=== PATIENT | female | born 1955 | race Caucasian/White ===

== ENCOUNTER 2020-01-03 07:09 | Outpatient (CLI) | payer MEDICARE, SELFPAY ==
[2020-01-03 08:15] LABS: Basophils Absolute Auto 0.1 K/mm3 (0.0-0.1); Basophils Percent Auto 0.8 % (0.2-1.2); Eosinophils Absolute Auto 0.7 K/mm3 (0-0.3); Eosinophils Percent Auto 11.2 % (0-4.4); Hematocrit 38.5 % (37.0-47.0); Hemoglobin 12.5 g/dL (12.0-15.0); Immature Granulocyte Absolute 0.02 K/mm3 (0.00-0.031); Immature Granulocyte Percent A 0.3 % (0-0.5); Lymphocytes Absolute Auto 2.27 K/mm3 (0.9-3.2); Lymphocytes Percent Auto 38.5 % (18.3-44.2); Mean Corpuscular HGB Conc 32.5 g/dl (32-36); Mean Corpuscular Hemoglobin 32.3 pg (26-34); Mean Corpuscular Volume 99.5 fl (80-100); Mean Platelet Volume 9.9 fl (7.4-10.4); Monocytes Absolute Auto 0.5 K/mm3 (0.1-0.6); Monocytes Percent Auto 7.6 % (2.6-8.5); Neutrophils Absolute Auto 2.5 K/mm3 (1.3-6.7); Neutrophils Percent Auto 41.6 % (45.5-73.1); Platelet Count Result 210 k/mm3 (150-375); Red Blood Count 3.87 M/mm3 (4.2-5.4); Red Cell Distribution Width 12.6 % (11.5-14.5); White Blood Count 5.9 K/mm3 (4.5-10.0)
[2020-01-03 08:30] LABS: Alanine Aminotransferase 21 U/L (4-35); Albumin Level 4.3 g/dL (3.5-5.1); Alkaline Phosphatase 59 U/L (38-126); Aspartate Amino Transferase 29 U/L (14-36); Bilirubin,Total 0.7 mg/dL (0.2-1.3); Blood Urea Nitrogen 16 mg/dL (7-17); Carbon Dioxide 31 mmol/L (22-30); Chloride 101 mmol/L (98-107); Cholesterol 222 mg/dL (0-200); Estimated Glomerular Filt Rate > 60; Glucose 80 mg/dL (65-105); HDL Direct 58 mg/dL; Potassium 4.1 mmol/L (3.4-5.0); Sodium 136 mmol/L (137-145); Triglycerides 70 mg/dL (<150)
[2020-01-03 08:42] LABS: Add Urine Microscopic? YES; Appearance Urine Clear (Clear); Bilirubin Urine Negative (Negative); Blood Urine 2+ (Negative); Color Urine Straw (Yellow); Glucose Urine UA Negative (Negative); Ketones Urine Trace mg/dL (Negative); Leukocyte Esterase Ur Negative LEU/UL (Negative); Mucus Urine Rare /lpf; Nitrate Urine Negative (Negative); Protein Urine Negative (Negative); RBC Urine 0-2 /hpf (0-2); Transitional Epi Cells Urine Rare /hpf (None Seen); Urobilinogen Urine Negative mg/dL (<2.0); WBC Urine 0-3 /hpf
[2020-01-03 08:44] LABS: LDL Cholesterol Direct 121 mg/dL
[2020-01-03 09:04] LABS: Thyroid Stimulating Hormone 0.616 uIU/mL (0.465-4.680)
[2020-01-03 09:20] LABS: Free T4 Free Thyroxine 1.64 ng/mL (0.78-2.19); Vitamin D 25 Hydroxy 62.5 ng/mL
[2020-01-07 07:14] LABS: Triiodothyronine T3 Free 2.9 pg/mL (2.3-4.2)
== END 2020-01-03 07:10 | disposition home or self-care (01) ==
PROVIDERS: PCP Internal Medicine; Referring Provider Internal Medicine Endocrinology, Diabetes & Metabolism; Visit Provider Physician Assistant
DX: E03.9 Hypothyroidism, unspecified (principal); M81.0 Age-related osteoporosis without current pathological fracture; Z79.899 Other long term (current) drug therapy; Z13.6 Encounter for screening for cardiovascular disorders
CPT/HCPCS: 36415; 80053; 80061; 81001; 82306; 84439; 84443; 84481; 85025

== ENCOUNTER 2020-02-20 16:34 | Outpatient (CLI) | payer MEDICARE, SELFPAY ==
[2020-02-20 17:02] LABS: Add Urine Microscopic? YES; Appearance Urine Clear (Clear); Bilirubin Urine Negative (Negative); Blood Urine 2+ (Negative); Color Urine Straw (Yellow); Glucose Urine UA Negative (Negative); Ketones Urine Negative (Negative); Leukocyte Esterase Ur Negative LEU/UL (NEGATIVE); Mucus Urine Rare /lpf; Nitrate Urine Negative (Negative); Protein Urine Negative (Negative); RBC Urine 0-2 /hpf (0-2); Specific Grav Ur 1.009 (1.001-1.035); Urobilinogen Urine Negative mg/dL (<2.0); WBC Urine 0-3 /hpf (0-3)
== END 2020-02-20 16:35 | disposition home or self-care (01) ==
PROVIDERS: PCP Internal Medicine; Visit Provider Internal Medicine Endocrinology, Diabetes & Metabolism
DX: R31.21 Asymptomatic microscopic hematuria (principal)
CPT/HCPCS: 81001

== ENCOUNTER 2020-03-08 09:41 | Outpatient (CLI) | payer MEDICARE, SELFPAY ==
--- NOTE | ~2020-03-08 | US_ITS ---
EXAMINATION: US retroperitoneal comp DATE: 03/08/2020 10:39 INDICATION: Hematuria TECHNIQUE: Multiple grayscale and Doppler ultrasound images of the kidneys were obtained. COMPARISON: None. FINDINGS: The right kidney measures 9.7 x 5.9 cm. The left kidney measures 10.2 x 5.0 x 4.0 cm. The k idneys demonstrate normal parenchymal echogenicity. There is no hydronephrosis. The bladder is normal . IMPRESSION: 1. Normal kidneys without hydronephrosis. Reviewed, dictated and finalized at location B.
== END 2020-03-08 09:42 | disposition home or self-care (01) ==
PROVIDERS: PCP Internal Medicine; Visit Provider Internal Medicine Endocrinology, Diabetes & Metabolism
DX: R31.9 Hematuria, unspecified (principal)
CPT/HCPCS: 76770

== ENCOUNTER → 2020-05-07 11:11 | Outpatient (CLI) | payer MEDICARE, SELFPAY ==
--- NOTE | ~2020-05-07 | CT_ITS ---
EXAMINATION: CT abdomen pelvis wo/w con DATE: 05/07/2020 11:53 INDICATION: Microscopic hematuria TECHNIQUE: Computed tomography (CT) of the abdomen and pelvis was performed without intravenous contr ast. CT of the abdomen and pelvis was then performed with a total of 130 mL Omnipaque 350 intravenous contrast using a double-bolus technique for simultaneous opacification of the renal parenchyma and r enal collecting system. The dose-length product (DLP) was 1149.63 mGy-cm. Automated exposure control and iterative reconstruction technique were employed. COMPARISON: None FINDINGS: There is mild emphysema of the visualized lung bases. The heart size is normal. The liver, spleen, pancreas, gallbladder, and adrenal glands are normal. The kidneys are unremarkable. No stones are identified in the kidneys, ureters, or bladder. There is no hydronephrosis or hydroureter. No irwin spicious renal or urothelial lesion is identified. The right ureter is not well opacified beyond the iliac vessels but no suspicious mass is seen. No pathologically enlarged abdominal or pelvic lymph no rupinder are identified. There is no free intraperitoneal gas or evidence of bowel obstruction. A phleboli th is noted in the right ovarian vein. A moderate volume of colonic stool is present. Colonic diverti culosis is present without evidence of diverticulitis. The appendix is normal. There is mild lumbar s pondylosis. A fat-containing umbilical hernia is noted. IMPRESSION: 1. No CT correlate for the patient's symptoms. Reviewed, dictated and finalized at location A.
--- NOTE | ~2020-05-07 | XR_ITS ---
EXAMINATION: XR abdomen w oblique INDICATION: Microscopic hematuria TECHNIQUE: AP and bilateral oblique views of the abdomen are obtained on four radiographs. COMPARISON: None available FINDINGS: Contrast from earlier CT examination partially opacifies the urinary tract. There is no hyd ronephrosis or hydroureter. The bowel gas pattern is normal. No abnormal calcifications are identifie d. IMPRESSION: 1. No radiographic correlate for hematuria. Reviewed, dictated and finalized at location A.
[2020-05-07 11:35] LABS: Estimated Glomerular Filt Rate > 60
== END ==
PROVIDERS: PCP Physician Assistant; Visit Provider Urology
DX: R31.29 Other microscopic hematuria (principal)
CPT/HCPCS: 74021; 74178; Q9967

== ENCOUNTER 2021-03-31 07:46 | Outpatient (CLI) | payer MEDICARE, SELFPAY ==
--- NOTE | ~2021-03-31 | DEXA_ITS ---
Bone Density Report Name: Kaykay Alvarez Age: 65 Sex: Female Ethnicity: White Date of : 1955 Indication: osteopenia; monitoring treatment; height loss; prior fracture; cancer; hysterectomy; postmenopausal Referring Provider: Kuldip, Zoe Cason Study: Bone densitometry was performed. Exam Date: March 31, 2021 Accession number: [id number] Bone Density: Region BMD T-score Z-score Classification AP Spine (L1-L4) 0.866 -1.6 0.3 Osteopenia Femoral Neck (Left) 0.583 -2.4 -0.7 Osteopenia Total Hip (Left) 0.713 -1.9 -0.5 Osteopenia Total Hip Bilateral Avg 0.719 -1.9 -0.5 Osteopenia Femoral Neck (Right) 0.570 -2.5 -0.9 Osteoporosis Total Hip (Right) 0.724 -1.8 -0.4 Osteopenia World Health Organization criteria for BMD impression classify patients as: Normal (T-score at or above -1.0), Osteopenia (T-score between -1.0 and -2.5), or Osteoporosis (T-score at or below -2.5). 10-year Fracture Risk: FRAX not reported because: Some T-score for Spine Total or Hip Total or Femoral Neck at or below -2.5 Treated for osteoporosis Previous Exams: Region Exam Age BMD T-score BMD Change BMD Change Date g/cm2 vs Baseline vs Previous AP Spine(L1-L4) 03/31/2021 65 0.866 -1.6 -0.145(-14.4%) 0.023(2.7%) 08/14/2015 59 0.844 -1.8 -0.168(-16.6%) 0.075(9.8%)11/30/2013 58 0.769 -2.5 -0.243(-24.0%) -0.089(-10.4%) 11/21/2008 53 0.858 -1.7 -0.154(-15.2%) -0.154(-15.2%) 11/22/2003 48 1.012 -0.3 Total Hip(Left) 03/31/2021 65 0.713 -1.9 -0.156(-18.0%) 0.008(1.2%) 08/14/2015 59 0.705 -1.9 -0.165(-18.9%) -0.014(-2.0%)11/30/2013 58 0.719 -1.8 -0.150(-17.3%) 0.028(4.0%)# 11/21/2008 53 0.691 -2.1 -0.178(-20.5%) -0.178(-20.5%) 11/22/2003 48 0.869 -0.6 Total Hip(Right) 03/31/2021 65 0.724 -1.8 -0.105(-12.6%) -0.002(-0.3%) 08/14/2015 59 0.726 -1.8 -0.102(-12.3%) -0.002(-0.2%)11/30/2013 58 0.728 -1.8 -0.101(-12.2%) 0.009(1.3%)# 11/21/2008 53 0.719 -1.8 -0.110(-13.3%) -0.110(-13.3%) 11/22/2003 48 0.829 -0.9 *Denotes significance at 95% confidence level, LSC for AP Spine = 0.022 g/cm2, LSC for Total Hip = 0.027 g/cm2 Clinical Information Provided by Patient: Has had a low trauma fracture Is being treated for osteoporosis Has used the following medications: Reclast (i.e. zoledronate), Vitamin D Has the following medical conditions: Cancer, Hysterectomy Patient maximum height was 65 Menopause Age: 55 No regular weight bearing exercise Does not regularl
== END 2021-03-31 07:47 | disposition home or self-care (01) ==
LOC: ANHIMG 07:49
PROVIDERS: PCP Physician Assistant; Visit Provider Internal Medicine Endocrinology, Diabetes & Metabolism
DX: M81.0 Age-related osteoporosis without current pathological fracture (principal); M85.88 Other specified disorders of bone density and structure, other site; M85.852 Other specified disorders of bone density and structure, left thigh; M85.851 Other specified disorders of bone density and structure, right thigh
CPT/HCPCS: 77080

== ENCOUNTER 2021-08-31 12:51 | Emergency (ER) | payer MEDICARE, SELFPAY ==
--- NOTE | ~2021-08-31 | XR_ITS ---
EXAMINATION: XR chest 2V DATE: 08/31/2021 14:13 INDICATION: Jaw pain. Face pain. TECHNIQUE: Frontal and lateral views of the chest were obtained. COMPARISON: Chest single view 08/04/2017 FINDINGS: The chest demonstrates clear lungs without pneumonia, pleural effusion, or pneumothorax. Th e heart size is normal. Surgical clips in right axilla. There are surgical clips in left axilla. IMPRESSION: 1. No acute cardiopulmonary disease. Reviewed, dictated and finalized at location A. [employer]
[2021-08-31 13:00] VITALS: BP 181/102; PULSE 79; RESP 16; TEMP 36.6; O2SAT 100
[2021-08-31 13:06] VITALS: PULSE 80
--- NOTE | 2021-08-31 13:45 | ECG_ITS ---
Measurements Intervals [place] Rate: 75 P: 70 [place]: 150 QRS: 58 QRSD: 85 T: 49 QT: 369 QTc: 413 Interpretive Statements SINUS RHYTHM POSSIBLE LEFT ATRIAL ENLARGEMENT BORDERLINE ECG Electronically Signed On 08-31-2021 16:24:34 [employer] by Uriel Muir D.O.
[2021-08-31 13:57] LABS: Basophils Absolute Auto 0.1 K/mm3 (0.0-0.1); Basophils Percent Auto 1.1 % (0.2-1.2); Eosinophils Absolute Auto 0.4 K/mm3 (0-0.3); Eosinophils Percent Auto 5.3 % (0-4.4); Hematocrit 40.6 % (37.0-47.0); Hemoglobin 13.3 g/dL (12.0-15.0); Immature Granulocyte Absolute 0.02 K/mm3 (0.00-0.031); Immature Granulocyte Percent A 0.3 % (0-0.5); Lymphocytes Absolute Auto 2.48 K/mm3 (0.9-3.2); Lymphocytes Percent Auto 33.6 % (18.3-44.2); Mean Corpuscular HGB Conc 32.8 g/dl (32-36); Mean Corpuscular Hemoglobin 33.3 pg (26-34); Mean Corpuscular Volume 101.5 fl (80-100); Monocytes Absolute Auto 0.6 K/mm3 (0.1-0.6); Monocytes Percent Auto 8.4 % (2.6-8.5); Neutrophils Absolute Auto 3.8 K/mm3 (1.3-6.7); Neutrophils Percent Auto 51.3 % (45.5-73.1); Platelet Count Result 227 k/mm3 (150-375); White Blood Count 7.4 K/mm3 (4.5-10.0)
[2021-08-31 14:06] LABS: INR 0.9; Prothrombin Time 12.3 Seconds (11.1-14.7)
[2021-08-31 14:07] LABS: Partial Thromboplastin Time 23.7 SECONDS (22.3-36.8)
[2021-08-31 14:08] LABS: Alanine Aminotransferase 27 U/L (4-35); Albumin Level 4.4 g/dL (3.5-5.1); Alkaline Phosphatase 55 U/L (38-126); Anion Gap 4 mmol/L (8-16); Aspartate Amino Transferase 32 U/L (14-36); Bilirubin,Total 0.2 mg/dL (0.2-1.3); Blood Urea Nitrogen 14 mg/dL (7-17); Calcium 9.3 mg/dL (8.4-10.2); Carbon Dioxide 31 mmol/L (22-30); Chloride 101 mmol/L (98-107); Estimated Glomerular Filt Rate > 60; Glucose 88 mg/dL (65-110); Lipase 81 U/L (23-300); Potassium 3.9 mmol/L (3.4-5.0); Sodium 136 mmol/L (137-145)
[2021-08-31 14:19] LABS: Troponin I < 0.012 ng/mL (0.000-0.034)
--- NOTE | 2021-08-31 15:08 | ED.GENADULT ---
HPI - General Adult General Chief complaint: Chest Pain Stated complaint: left jaw pain Time Seen by Provider: 08/31/21 14:11 Source: patient Mode of arrival: ambulatory Limitations: no limitations History of Present Illness HPI narrative: Patient 65 years old white female presents with left facial pain started 2 days ago. Intermittent. Last for hours. Got worse today after eating. Get better sometimes and ice pack. History of intermittent shoulder pain for over 40 years without specific diagnosis. Patient denies any fever, chills, nausea, vomiting, diarrhea, constipation, chest pain, shortness of breath, back pain, headache, earache or difficulty swallowing or breathing Related Data Allergies Allergy/AdvReac Type Severity Reaction Status Date / Time adhesive Allergy Unknown Verified 06/14/15 10:27 shellfish derived Allergy Unknown Verified 06/14/15 10:32 Jczjlae-NIG-DxL Reductase Allergy Unknown Verified 06/14/15 10:33 Inhibitor [Otoqkgm-Eqt-Ocf Reductase Inhibitor] pravastatin AdvReac Severe ACHY Verified 08/04/17 12:59 JOINTS,MUSCLES Shrimp Allergy Unknown HIVES Uncoded 08/04/17 12:59 Review of Systems Review of Systems: CONSTITUTIONAL: Denies fever, chills, or sweats. EYES: Denies visual changes, redness, or discharge. ENT: Denies rhinorrhea, congestion, sore throat, or otalgia. CARDIOVASCULAR: Denies chest pain, palpitations, or edema. RESPIRATORY: Denies cough or dyspnea. GASTROINTESTINAL: Denies abdominal pain, nausea, vomiting, or diarrhea. GENITOURINARY: Denies dysuria or hematuria. SKIN: Denies rash or itching. MUSCULOSKELETAL: Denies back pain, joint pain, or myalgia. NEUROLOGIC: Denies headache, numbness, or weakness. PSYCHIATRIC: Denies anxiety or depression. [facility] Family History Family History Mother Hypertension Family history of heart disease in male family member before age 55 Sibling Family history of allergic disorder Father Family history of elevated blood lipids Acute myocardial infarction Family history of lung cancer Family history of malignant neoplasm of skin Other Cerebrovascular accident Diabetes mellitus Family history of cardiovascular disease Social History Social History Smoking status: Never smoker Alcohol intake: current Exam Narrative: General appearance: Well-developed, well-nourished Skin: Normal color Head: Normocephalic, nontraumatic Eyes: Clear conjunctiva ENT: Left upper gum tenderness, no bruises, no swelling, no abscess formation, no erythematous changes, no swelling, no rash, Neck: Supple, nontender Chest and respiratory: Airway patent, no respiratory distress, no accessory muscle use Heart: Regular rate/rhythm Abdomen: Soft, nontender, no organomegaly, quiet bowel sounds Vascular: Normal peripheral pulses, normal capillary refill. Musculoskeletal: Normal range of motion, nontender back Neurologic: Alert and oriented ?3, CH[employer]NA[employer] LEAD is normal as tested, no gross motor deficit Course Course Emergency Course: Stable Vital Signs Vital signs: Vital Signs Temperature 36.6 C 08/31/21 13:00 Pulse Rate 79 08/31/21 13:00 Respiratory Rate 16 08/31/21 13:00 Blood Pressure 181/102 H 08/31/21 13:00 Pulse Oximetry 100 08/31/21 13:00 Temperature 36.6 C 08/31/21 13:00 Pulse Rate 80 08/31/21 13:06 Respiratory Rate 16 08/31/21 13:00 Blood Pressure 181/102 H 08/31/21 13:00 Pulse Oximetry 100 08/31/21 13:00 Medical Decision Making MDM Narrative Medical decision making narrative: Patient have chronic left facial pain with intermit
[2021-08-31 15:49] VITALS: PULSE 76; RESP 15; O2SAT 94
== END 2021-08-31 16:12 | disposition home or self-care (01) ==
PROVIDERS: Emergency Provider Emergency Medicine; PCP Physician Assistant
DX: R51.9 Headache, unspecified (principal); R94.31 Abnormal electrocardiogram [ECG] [EKG]
CPT/HCPCS: 36415; 71046; 80053; 83690; 84484; 85025; 85610; 85730; 93005; 99284